=== PATIENT | female | born 1960 | race Caucasian/White ===

== ENCOUNTER 2022-09-23 08:00 | Outpatient (RCR) | payer OTHER, SELFPAY ==
--- NOTE | 2022-09-02 12:50 | PTOPEVAL1 ---
Assessment and note entered by Ozzie Quevedo, PT Evaluation Information Assessment Status Evaluation Diagnosis neck, R shoulder, R upper back pain Subjective Information Maria Victoria is coming in with neck pain radiating into the R shoulder, and L upper back. She reports she has been very busy the last 6 months cleaning her mom's house and noticing more issues with looking down during chores, gardening, and prolonged times spent on her tablet. She reports some numbness, tingling, and weakness on the R side along with the pain. Reported Pain Level Pain Score 4: Self Report Assessment PT Clinical Summary Maria Victoria is a 62 year old female coming into the clinic with neck pain radiating down the R arm and into the L upper back. She has decreased range of motion in active cervical region along with tightness and soreness in LEANDRO upper traps and suboccipitals. Patient also presents with poor posture and educated on importance of sitting up straight with head and shoulders not back. Physical therapy will work on improving deficits with strengthening and stretching exercises along with manual therapy and modalities for pain control. Plan of Care Interventions Electrical Stimulation,Gait Training,Hot Pack/Cold Pack,Manual Therapy,Mechanical Traction,Neuro Re- education,Patient/Caregiver Education,Therapeutic Activities,Therapeutic Exercise,Ultrasound PT Services Indicated Yes Treatment Frequency and 1-2x/wk for 4 weeks Duration These treatments will address the objective and functional deficits as defined above. The patient will be advanced safely and appropriately in order for the patient to progress towards his/her prior level of function. Additional exercises will be introduced and as well as a comprehensive home exercise program upon discharge, if needed, ?to ensure carryover of functional gains achieved in the clinic. This treatment plan has been reviewed and agreement upon by the patient.
--- NOTE | 2022-09-09 11:42 | PCPTNOTE ---
Patient called & cancelled scheduled appointment this date due to vomiting and not feeling well.
--- NOTE | 2022-09-23 09:11 | PTOPDC ---
Assessment and note entered by Ozzie Quevedo, PT Evaluation Information Assessment Status Discharge Diagnosis Cervicalgia Subjective Information Maria Victoria reports that the pain has decreased on average and all in all she just feels like the neck and arm are more loose and not pulling as much. She reports being able to do more with her gardening and focused more on her posture than she can. Patient also is planning to get monthly massages which she thinks will help her quite well . Reported Pain Level Pain Score 3: Self Report Assessment PT Clinical Summary Maria Victoria is a 62 year old female coming inot the clinic for neck pain with radiating symptoms down the R UE. Patient reports improvement in symptoms including less radiating symptoms and just feeling more loose. Patient at this times feels she will be able to progress with a combination of her HEP and scheduled massages. Patient appears motivated so will discharged from skilled physical therapy at this time. Plan of Care PT Services Indicated No Treatment Frequency and discharged from skilled physical therapy. Duration
== END 2022-09-23 11:38 | disposition home or self-care (01) ==
LOC: ANHPT 08:00
PROVIDERS: PCP Nurse Practitioner Family; Visit Provider Nurse Practitioner Family
DX: M54.2 Cervicalgia (principal)
CPT/HCPCS: 97014; 97110; 97140; 97161; G0283